=== PATIENT | female | born 1945 | race Caucasian/White ===

== ENCOUNTER 2022-02-06 17:07 | Emergency (ER) | payer OTHER ==
[~2022-02-06] VITALS: Ht 165.1 cm; Wt 59.0 kg
--- NOTE | 2022-02-06 17:15 | NUR ---
BIBA TO BED 05
[2022-02-06 17:16] VITALS: BP 165/92
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
--- NOTE | 2022-02-06 18:39 | NUR ---
DR DAVILA AT BEDSIDE FOR EVAL
[2022-02-06 19:03] VITALS: BP 165/92
--- NOTE | 2022-02-06 19:04 | NUR ---
Patient discharged with v/s stable. Written and verbal after care instructions given and explained. Patient verbalized understanding. Ambulatory with steady gait. All questions addressed prior to discharge. Advised to follow up with PMD.
== END 2022-02-06 19:04 | disposition home or self-care (01) ==
LOC: MED 17:07
DX: S00.93XA Contusion of unspecified part of head, initial encounter (principal); I10 Essential (primary) hypertension; Z88.2 Allergy status to sulfonamides; W22.8XXA Striking against or struck by other objects, initial encounter; Y93.89 Activity, other specified; Y92.89 Other specified places as the place of occurrence of the external cause; Y99.8 Other external cause status
CPT/HCPCS: 99283